=== PATIENT | male | born 1980 ===

== ENCOUNTER → 2019-12-04 | Outpatient (CLI) | payer OTHER ==
--- NOTE | 2019-12-04 12:27 | REP ---
Left knee series: Five views. History: Pain in the left knee. Findings: Five views of the left knee demonstrate normal bones, joints and soft tissues. There is no evidence of fracture, subluxation or arthropathy. Impression: Negative radiographs of the left knee. Electronically Signed by Thee Franz MD 12/04/2019 12:20 P
== END ==
LOC: M ADAMS 10:23
PROVIDERS: ATTEND Physician Assistant
DX: M25.562 Pain in left knee (principal)